=== PATIENT | male | born 1965 | race Caucasian/White ===

== ENCOUNTER 2021-09-09 15:58 | Inpatient (IN) | payer BC ==
[~2021-09-09] VITALS: Ht 180.3 cm; Wt 135.6 kg
[2021-09-09 16:13] VITALS: BP 156/78
[2021-09-09 17:08] LABS: HEMATOCRIT 43.6 % (42.0-52.0); HEMOGLOBIN 14.4 gm/dL (14.0-18.0); MCH 26.7 pg (26.0-34.0); MCV 80.8 fL (80.0-100.0); PLATELET COUNT 151 thou/uL (150-400); RBC 5.39 mil/uL (4.50-6.00); RDW 14.8 % (10.5-14.5); WBC 5.2 thou/uL (4.0-11.0)
[2021-09-09 17:18] LABS: CALCIUM 8.8 mg/dL (8.5-10.1); CREATININE 1.1 mg/dL (0.7-1.3); POTASSIUM 4.1 mmol/L (3.5-5.1)
[2021-09-09 17:24] LABS: ALBUMIN 3.1 g/dL (3.4-5.0); TOTAL BILIRUBIN 0.7 mg/dL (0.2-1.0); TOTAL PROTEIN 7.1 g/dL (6.4-8.2)
[2021-09-09 18:19] LABS: ATYPICAL LYMPHS 1 %
[2021-09-09] MEDS ORDERED: KLOR-CON M2020 MEQ PO (20:45)
[2021-09-09] MEDS ORDERED: FUROSEMIDE 40 M40 M1 PO (20:46)
[2021-09-09] MEDS ORDERED: HYDROCODON-ACE1 EAC7 PO (20:46)
[2021-09-09] MEDS ORDERED: PRAMIPEXOLE ER3 MG PO (20:46)
[2021-09-09] MEDS ORDERED: HORIZANT300 MG PO (20:46)
[2021-09-09] MEDS ORDERED: LOSARTAN-HCTZ1 EAC3 PO (20:46)
[2021-09-09] MEDS ORDERED: SINGULAIR 10 MG10 M1 PO (20:47)
[2021-09-09] MEDS ORDERED: DULOXETINE HCL60 MG PO (20:47)
[2021-09-10 02:00] LABS: HEMATOCRIT 43.1 % (42.0-52.0); MCH 26.4 pg (26.0-34.0); MCHC 32.5 g/dL (28.0-37.0); MCV 81.3 fL (80.0-100.0); RBC 5.3 mil/uL (4.50-6.00); RDW 14.9 % (10.5-14.5); WBC 4.5 thou/uL (4.0-11.0)
[2021-09-10 02:09] LABS: ALBUMIN 2.9 g/dL (3.4-5.0); CALCIUM 8.4 mg/dL (8.5-10.1); POTASSIUM 4.4 mmol/L (3.5-5.1); TOTAL BILIRUBIN 0.8 mg/dL (0.2-1.0); TOTAL PROTEIN 6.9 g/dL (6.4-8.2)
--- NOTE | 2021-09-10 07:10 | EKG ---
[address] [place] [place] [address] ELECTROCARDIOGRAM REPORT Name: DAVI PAULA Room #: 170-5 ADM IN M.R.#: [id number] Admission: 09/09/21 Attend Phys: Wing Barron MD Discharge: Date of : 63 Report #: [id number] [facility] ED Test Date: 2021-09-09 Test Time: 16:47:44 Pat Name: DAVI PAULA Department: Room: 170 Gender: M Alcohol And Drug Counselor: RICKI : 1965 Requested By: Liu Motley Order Number: [id number] : Jermaine Cardenas Measurements Intervals [place] Rate: 75 P: 35 LA: 127 QRS: 11 QRSD: 86 T: 19 QT: 378 QTc: 423 Interpretive Statements Sinus rhythm Low voltage, precordial leads No previous ECG available for comparison Electronically Signed On 09-10-2021 7:10:25 [employer] by Jermaine Cardenas [email or web address] <ELECTRONICALLY SIGNED> By: Jermaine Cardenas MD, [facility] 09/10/21 0710 [id number] Jermaine Cardenas MD, FAC /EPI
[2021-09-10 08:00] VITALS: BP 151/78
[2021-09-10 12:00] VITALS: BP 140/68
[2021-09-10 15:05] VITALS: BP 140/68
[2021-09-10 16:30] VITALS: BP 149/77
--- NOTE | 2021-09-10 18:46 | NUR ---
PT ARRIVED FROM ED AT 1630 ACCOMPANIED BY ED sql developer. PT ALERT AND ORIENTED X4. PT DENIES ANY PAIN. PT EDUCATED TO ROOM. SR ON THE MONITOR. ON 2L NC.
[2021-09-10 19:42] VITALS: BP 157/73
[2021-09-10 23:39] VITALS: BP 122/71
[2021-09-11 04:17] VITALS: BP 146/72
--- NOTE | 2021-09-11 04:52 | NUR ---
PT MAKING PROGRESS TOWARDS GOALS. ON O2 AT 2L PER NC AND/OR ON CPAP WITH 02 AT 2L BLED IN OVERNIGHT. LUNGS CTA, DIMINISHED IN BOTH BASES.
[2021-09-11 05:55] LABS: HEMATOCRIT 39.8 % (42.0-52.0); HEMOGLOBIN 13.2 gm/dL (14.0-18.0); MCH 26.9 pg (26.0-34.0); MCHC 33.3 g/dL (28.0-37.0); RBC 4.91 mil/uL (4.50-6.00); RDW 14.4 % (10.5-14.5); WBC 4.8 thou/uL (4.0-11.0)
[2021-09-11 06:16] LABS: ALBUMIN 2.8 g/dL (3.4-5.0); CALCIUM 8.2 mg/dL (8.5-10.1); CREATININE 0.9 mg/dL (0.7-1.3); DIRECT BILIRUBIN 0.2 mg/dL (<0.1-0.2); POTASSIUM 3.7 mmol/L (3.5-5.1); TOTAL BILIRUBIN 0.7 mg/dL (0.2-1.0); TOTAL PROTEIN 6.3 g/dL (6.4-8.2)
--- NOTE | 2021-09-11 11:55 | HC ---
[facility] [place] [address] CONSULTATION Name: DAVI PAULA Room #: 352-P ADM IN M.R.#: [id number] Admission: 09/09/21 Attend Phys: Beka Sofia MD Discharge: Date of : 63 Report #: [id number] THIS REPORT FOR: cc: NO FAMILY PHYSICIAN or PCP NO FAMILY PHYSICIAN or PCP Brenton Howe MD ~ DATE OF SERVICE: 09/10/2021 INFECTIOUS DISEASE CONSULTATION ATTENDING PHYSICIAN: Dr. Barron. REASON FOR EVALUATION: COVID-19 infection, complicated by pneumonitis and respiratory failure. HISTORY OF PRESENT ILLNESS: Chart reviewed, patient examined. This is a 56-year-old gentleman with history of hypertension, obstructive sleep apnea, who was confirmed to have a positive COVID test dating 09/01/2021, had been noted to have onset of illness the day before. He was seen by his PCP, started on ivermectin, prednisone; however, he had progressive illness over the course of last 3 days prior to admission with cough, did admit to some degree of hemoptysis, generalized myalgias and progressive illness in terms of some hypoxia. He is currently requiring supplemental oxygen at 2-3 liters per nasal cannula. Initial x-ray did show some mild scattered bilateral interstitial infiltrates. Lactic acid was elevated at 2.0, glucose was 161. Blood cultures collected at time of admission are sterile thus far. Empirically started on therapy with azithromycin, ceftriaxone, remdesivir as well as corticosteroids and vitamins. ALLERGIES: None known. MEDICATIONS: Include azithromycin, ipratropium, albuterol inhaler, losartan, potassium chloride, cholecalciferol, dexamethasone, zinc, ceftriaxone, budesonide, pramipexole, duloxetine, gabapentin. PAST MEDICAL HISTORY: History of asthma, restless leg syndrome, peripheral neuropathy, obstructive sleep apnea, hypertension. SOCIAL HISTORY: Nonsmoker, no ethanol, no illicit drug use. FAMILY HISTORY: Noncontributory. REVIEW OF SYSTEMS: Otherwise, unremarkable with the exception of the above. PHYSICAL EXAMINATION: GENERAL: He appears ill, not overtly toxic, moderate distress. He is generally [facility] [address] [place] [address] CONSULTATION Name: DAVI PAULA Room #: 352-P [facility] IN M.R.#: [id number] Admission: 09/09/21 Attend Phys: Beka Sofia MD Discharge: Date of : 63 Report #: [id number] lucid. Speech is slightly difficult. Reasonably well nourished. VITAL SIGNS: Temperature 98.3, pulse 70, respirations 16, blood pressure 140/68. SKIN: Warm, dry, no rashes. HEENT: Normocephalic. Extraocular muscles intact. Nasal cannula in place. NECK: Supple. LUNGS: Crackles at the bases bilaterally. HEART: Regular. I do not appreciate a murmur. ABDOMEN: Distended, firm, nontender. EXTREMITIES: No cyanosis. GENITOURINARY AND RECTAL: Deferred. LABORATORY DATA: D-dimer 0.46. CRP of 29. Cultures sterile thus far. Electrolytes: Sodium 142, potassium 4.4, chloride 109, bicarbonate is 25, anion gap of 8, BUN and creatinine 22 and 1.0, glucose of 162, AST of 44, ALT of 75. Albumin 2.9, total protein 6.9. Estimated GFR 77. CBC: White count of 4.5, H and H 14.0 and 43.1, platelets of 162. Glucose of 162. Lactic acid repeat was 1.2, procalcitonin less than 0.05. ASSESSMENT AND PLAN: COVID-19 infection, complicated by pneumonitis, respiratory failure in setting of hypertension, obstructive sleep apnea. We will continue combination empiric therapy as described with ceftriaxone and azithromycin in addition to directed therapy with remdesivir, corticosteroids and vitamins. He is somewhat tenuous. Continued oxygen support is allowed. We will add incentive spirometry. Monitor expectantly for signs of nosocomial related complications or any clinical deterioration. <ELECTRONICALLY SIGNED> By: Brenton Howe MD 09/11/21 1155 [id number] Brenton Howe MD /nt
[2021-09-11 12:07] VITALS: BP 147/73
--- NOTE | 2021-09-11 15:04 | NUR ---
ORDERS RECEIVED FOR EVAL AND TREAT. Pt IS UP AD NIC IN ROOM. OBSERVED Pt STAND AND AMBULATE IN ROOM WITHOUT DIFFICULTY. Pt STATES HE IS HAVING NO DIFFICULTY WITH MOBILITY. Pt DECLINING A FORMAL P.T. EVAL BUT APPEARS SAFE FOR HOME WHEN MEDICALLY CLEAR
--- NOTE | 2021-09-11 15:45 | NUR ---
INITIAL ASSESSMENT: SW reviewed chart and spoke with nursing and attending physician. Pt was admitted due to COVID. Pt had first positive COVID test on 09/01/2021. Pt placed in Enhanced Isolation. Pt is afebrile and on 2L of O2. Pt is on IV meds and COVID meds. SW spoke with pt via phone. Introduced role of SW. Pt is alert/orientated x 4. Pt reports that he lives with his (who is also currently hospitalized due to COVID) in [place], [place]. Prior to admission, pt was independent with ADLs. No use of DME. No hx of services or post-acute placement. Pt does not currently have a PCP. Pt and spouse are in the processing of establishing primary care. Plan is for pt to discharge home when medically stable. SW is following to assist as needed with discharge planning.
[2021-09-11 16:30] VITALS: BP 150/82
--- NOTE | 2021-09-11 17:43 | NUR ---
assumed care of pt at 0700. pt aox4. maintains spo2 on room air. occasional coughing fits. up ad efrain w/ steady gait. socializing with throughout the day who is admitted in room next door. no events on telemetry.
[2021-09-11 19:25] VITALS: BP 124/77
[2021-09-11 21:02] LABS: ABSOLUTE NEUTROPHILS 7.1 thou/uL (1.4-8.2); BASOPHILS 0.3 % (0.0-2.0); HEMATOCRIT 43.4 % (42.0-52.0); HEMOGLOBIN 14.2 gm/dL (14.0-18.0); LYMPHOCYTES 11.3 % (24.0-44.0); MCH 26.6 pg (26.0-34.0); MCHC 32.7 g/dL (28.0-37.0); MCV 81.1 fL (80.0-100.0); MONOCYTES 4.9 % (1.0-8.0); PLATELET COUNT 221 thou/uL (150-400); POLYS 83.5 % (36.0-66.0); RBC 5.35 mil/uL (4.50-6.00); RDW 14.5 % (10.5-14.5); WBC 8.6 thou/uL (4.0-11.0)
[2021-09-12 04:00] VITALS: BP 145/96
--- NOTE | 2021-09-12 05:11 | NUR ---
PROGRESS PT A/O X4. UP AD NIC , VSS. IV ANTIBIOTICS ADMINISTERED ORDERED. REPORTED PAIN TO ABDOMINAL MUSCLES FROM COUGHING BUT DENIED NEED FOR MEDICATION. IV IN RAC CATHETER WAS KINKED OFF DC'D AND 22 GAUGE INSERTED INTO LEFT HAND WITHOUT DIFFICULTY. ON ROOM AIR AND 02 PRN AFTER COUGHING FITS. CPAP AT HS. CONTINUE POC.
[2021-09-12 06:38] LABS: HEMATOCRIT 41.3 % (42.0-52.0); HEMOGLOBIN 13.6 gm/dL (14.0-18.0); MCH 26.7 pg (26.0-34.0); MCHC 32.9 g/dL (28.0-37.0); RBC 5.1 mil/uL (4.50-6.00); RDW 14.7 % (10.5-14.5)
[2021-09-12 07:01] LABS: ALBUMIN 2.7 g/dL (3.4-5.0); CALCIUM 8.3 mg/dL (8.5-10.1); CREATININE 0.9 mg/dL (0.7-1.3); MAGNESIUM 2.1 mg/dL (1.8-2.4); POTASSIUM 4.1 mmol/L (3.5-5.1); TOTAL BILIRUBIN 0.8 mg/dL (0.2-1.0); TOTAL PROTEIN 6.3 g/dL (6.4-8.2)
[2021-09-12 07:08] VITALS: BP 142/85
[2021-09-12 11:27] VITALS: BP 128/71
--- NOTE | 2021-09-12 13:50 | NUR ---
SW reviewed chart and spoke with nursing and attending physician. Pt remains in Enhanced Isolation due to COVID. Pt is afebrile and on 2L of O2. Pt is on IV abx and IV steroids. Pt is completing courses of COVID meds. No weekend discharge planned. Plan is for pt to discharge home when medically stable. Will need a rest/exercise oximetry prior to discharge to determine home O2 needs. YAMILETH is following to assist as needed with discharge planning.
[2021-09-12 15:29] VITALS: BP 148/89
[2021-09-12 19:49] VITALS: BP 132/77
[2021-09-13 04:00] VITALS: BP 145/80
--- NOTE | 2021-09-13 04:50 | NUR ---
PROGRESS PT A/O X4, UP AD NIC. VOIDING QS. ADEQUATE FLUID INTAKE. LUNGS CLEAR ON ROOM AIR, COUGHING LESS BUT NO SPUTUM PRODUCTION. IV ANTIBIOTICS GIVEN ORDERED. PT DENIES PAIN TO DC HOME INDEPENDENTLY WHEN COVID TREATMENT COMPLETED.
[2021-09-13 05:38] LABS: HEMATOCRIT 41.6 % (42.0-52.0); HEMOGLOBIN 13.7 gm/dL (14.0-18.0); MCH 26.9 pg (26.0-34.0); MCV 81.5 fL (80.0-100.0); RBC 5.1 mil/uL (4.50-6.00); RDW 14.7 % (10.5-14.5); WBC 7.9 thou/uL (4.0-11.0)
[2021-09-13 06:08] LABS: ALBUMIN 2.8 g/dL (3.4-5.0); CALCIUM 7.8 mg/dL (8.5-10.1); CREATININE 0.9 mg/dL (0.7-1.3); MAGNESIUM 2.2 mg/dL (1.8-2.4); POTASSIUM 4.2 mmol/L (3.5-5.1); TOTAL BILIRUBIN 0.7 mg/dL (0.2-1.0); TOTAL PROTEIN 5.9 g/dL (6.4-8.2)
[2021-09-13 07:59] VITALS: BP 136/83
[2021-09-13 11:31] VITALS: BP 139/72
[2021-09-13 15:35] VITALS: BP 148/84
--- NOTE | 2021-09-13 18:52 | NUR ---
PT A&OX4 THIS SHIFT, AMBULATE IN ROOM INDEPENDENTLY. PT HAS NO CONCERNS OR QUESTIONS. IV PATENT. PT REQUESTS MEDICATION FOR RESTLESS LEGS, THIS RN INFORMED IT IS ON WELT DRAWER SCHEDULE. PT VERBALIZED UNDERSTANDING.
[2021-09-13 20:58] VITALS: BP 130/69
--- NOTE | 2021-09-14 02:24 | NUR ---
PROGRESS PT A/O X4. SKIN C/D/I. LUNGS CLEAR BUT DIMINISHED IN BASES, PT REPORTS COUGH IS MORE INFREQUENT NOW. IV CATHETER KINKED SO DC'D AND 22 PLACED IN RH. FOR INTERMITTENT ANTIBIOTICS. VSS, TELEMETRY INTACT READING SB IN THE 60'S. ON ROOM AIR, CPAP AT HS. UP AD NIC VOIDING PER TOILET, HAD A BM DURING THE DAY. PT REPORTS RESTLESS LEGS AND NEUROPATHIC PAIN THAT IS CONTROLLED WITH GABAPENTIN AND PRAMPEXOLE. CONTINUE POC.
[2021-09-14 04:24] VITALS: BP 124/70
[2021-09-14 05:23] LABS: HEMATOCRIT 41.9 % (42.0-52.0); HEMOGLOBIN 13.8 gm/dL (14.0-18.0); MCH 26.9 pg (26.0-34.0); MCV 81.4 fL (80.0-100.0); RBC 5.15 mil/uL (4.50-6.00); RDW 14.7 % (10.5-14.5); WBC 8.1 thou/uL (4.0-11.0)
[2021-09-14 05:39] LABS: ALBUMIN 2.9 g/dL (3.4-5.0); CALCIUM 8.2 mg/dL (8.5-10.1); MAGNESIUM 2.2 mg/dL (1.8-2.4); POTASSIUM 3.7 mmol/L (3.5-5.1); TOTAL BILIRUBIN 0.7 mg/dL (0.2-1.0); TOTAL PROTEIN 6.4 g/dL (6.4-8.2)
[2021-09-14 07:54] VITALS: BP 137/78
[2021-09-14 11:30] VITALS: BP 148/93
[2021-09-14 15:42] VITALS: BP 147/87
[2021-09-14 19:40] VITALS: BP 131/75
[2021-09-15 04:19] LABS: HEMOGLOBIN 13.9 gm/dL (14.0-18.0); MCH 26.9 pg (26.0-34.0); MCV 81.5 fL (80.0-100.0); RBC 5.16 mil/uL (4.50-6.00); RDW 15.1 % (10.5-14.5); WBC 9.8 thou/uL (4.0-11.0)
[2021-09-15 04:20] VITALS: BP 140/80
[2021-09-15 04:40] LABS: ALBUMIN 2.9 g/dL (3.4-5.0); CALCIUM 8.2 mg/dL (8.5-10.1); MAGNESIUM 2.2 mg/dL (1.8-2.4); POTASSIUM 4.2 mmol/L (3.5-5.1); TOTAL BILIRUBIN 0.5 mg/dL (0.2-1.0); TOTAL PROTEIN 5.8 g/dL (6.4-8.2)
--- NOTE | 2021-09-15 07:15 | NUR ---
progress pt a/o x4 on room air lungs clear remdesivir completed plans to dc home today.
[2021-09-15 07:21] VITALS: BP 145/65
[2021-09-15] MEDS ORDERED: MUCINEX600 MG PO (11:43)
[2021-09-15] MEDS ORDERED: PEPCID20 MG PO (11:43)
[2021-09-15] MEDS ORDERED: VITAMIN D325 MC2 PO (11:43)
[2021-09-15] MEDS ORDERED: VENTOLIN HFA 1818 GM INH (11:43)
[2021-09-15] MEDS ORDERED: ASA81BEC PO (11:43)
[2021-09-15] MEDS ORDERED: PREDNISONE 10 M10 M1 PO (11:43)
[2021-09-15] MEDS ORDERED: VITAMIN C1000 MG PO (11:46)
[2021-09-15] MEDS ORDERED: ZINC-22050 MG PO (11:47)
[2021-09-15 12:17] VITALS: BP 145/65
--- NOTE | 2021-09-15 14:05 | NUR ---
DISCHARGE NOTE: SW reviewed chart and spoke with nursing and attending physician. Pt remains in Enhanced Isolation due to COVID. Pt is afebrile and on room air. Pt is medically stable for discharge home today. No discharge needs identified at this time. Pt's family to provide transportation home. SW is available to assist should needs arise.
== END 2021-09-15 13:49 | disposition home or self-care (01) | DRG 177 ==
LOC: ER 15:58 → 3W 19:46 → EROBS 19:46 → 3W 09-10 15:40
PROVIDERS: Internal Medicine Pulmonary Disease; Nurse Practitioner; Nurse Practitioner Family; ADMIT Internal Medicine; ATTEND Internal Medicine
PROC: XW033E5 Introduction of Remdesivir Anti-infective into Peripheral Vein, Percutaneous Approach, New Technology Group 5 (ICD-10-PCS; principal; 2021-09-09)
DX: U07.1 COVID-19 (principal); J12.82 Pneumonia due to coronavirus disease 2019; J96.01 Acute respiratory failure with hypoxia; G25.81 Restless legs syndrome; I10 Essential (primary) hypertension; R74.01 Elevation of levels of liver transaminase levels; J45.909 Unspecified asthma, uncomplicated; G62.9 Polyneuropathy, unspecified
CPT/HCPCS: 10879